=== PATIENT | female | born 1975 | race American Indian/Alaskan Native ===

== ENCOUNTER 2017-01-23 11:56 | Outpatient (CLI) | payer OTHER ==
--- NOTE | 2017-01-23 13:11 | XRAY Report ---
THREE-VIEW LEFT SHOULDER: 01/23/2017 CLINICAL INDICATION: Pain for six weeks. FINDINGS: Internal and external rotational views and a scapular Y view of the left shoulder demonstr ate no evidence of fracture or dislocation. The joint spaces are preserved. No radiopaque foreign b annamaria is seen in the soft tissues. IMPRESSION: NORMAL LEFT SHOULDER. JOB #: [id number] EXT JOB #:[id number]
== END 2017-01-23 11:57 | disposition home or self-care (01) ==
LOC: DI.N 11:56
PROVIDERS: ATTEND Physician Assistant
DX: M25.512 Pain in left shoulder (principal)

== ENCOUNTER 2019-08-16 12:35 | Emergency (ER) | payer BC, OTHER ==
[2019-08-16] MEDS ORDERED: HYDROcod/ACETAM 5/325 MG TABLET PO STA (13:59)
--- NOTE | 2019-08-16 13:59 | Ultrasound Report ---
Reason: RLE pain Procedure Date: 08/16/2019 Accession Number: [id number] / [id number] Procedure: US - Duplex Ext Veins Right CPT Code: Final Report FULL RESULT: EXAM: RIGHT LOWER EXTREMITY VENOUS ULTRASOUND EXAM DATE: 08/16/2019 01:45 PM. CLINICAL HISTORY: RLE pain. COMPARISON: None. TECHNIQUE: Real-time sonographic vascular imaging was performed by the organ tuner electronic through the lower extremity utilizing both color-flow and Doppler spectral analysis. Multiple workforce services representative static images were saved for review. FINDINGS: Common Femoral Vein (CFV): Normal. CFV-GSV Junction: Normal. Profunda Femoral Vein (PFV): Normal. Femoral Vein (FV) Prox: Normal. Femoral Vein (FV) Mid: Normal. Femoral Vein (FV) Dist: Normal. Popliteal Vein: Normal. Posterior Tibial Veins: Normal. Peroneal Veins: Normal. Contralateral Side CFV: Normal. Other: None. IMPRESSION: No evidence for deep venous thrombosis. [facility]
--- NOTE | 2019-08-16 14:00 | ED Physician Documentation ---
PD HPI LOWER EXT INJURY - Stated complaint Stated Complaint: RT LEG PX - Chief complaint Chief Complaint: Ext Problem - History obtained from History obtained from: Patient (43-year-old woman who is had about a weeks worth of right knee pain, it is worse when she walks. Gave out on her yesterday and she fell, did not help at all, she hurt her ankle little bit. The pain is in the middle and on the outside of the knee and radiates up to the right hip. She is never had this before.) Review of Systems Constitutional: denies: Fever, Chills Cardiac: reports: Reviewed and negative Respiratory: reports: Reviewed and negative PD PAST MEDICAL HISTORY - Present Medications Home Medications: Ambulatory Orders Medication Instructions Recorded Confirmed Hydrocodone/Acetaminophen 1 - 2 each PO Q6H PRN #10 tablet 08/16/19 [Hydrocodon-Acetaminophen 5-325] Ibuprofen [Motrin] 800 mg PO Q8H PRN #30 tablet 08/16/19 - Allergies Allergies/Adverse Reactions: Allergies Allergy/AdvReac Type Severity Reaction Status Date / Time No Known Drug Allergies Allergy Verified 08/16/19 12:53 PD ED PE NORMAL - Vitals Vital signs reviewed: Yes - General General: Alert and oriented X 3, No acute distress - Extremities Extremities: Other (The knee is mildly tender laterally, maybe a minimal effusion. Range of motion is normal. She has negative grind testing. Ligamentous testing is normal. A lot of tenderness over the IT band laterally and with IT band stretching. The ankle is nontender.) - Neuro Neuro: Alert and oriented X 3, Normal speech Results - Vitals Vitals: Vital Signs - 24 hr 08/16/19 12:53 Temperature 36.3 C L Heart Rate 87 Respiratory 16 Rate Blood Pressure 188/98 H O2 Saturation 100 Oxygen O2 Source Room air - Rads (name of study) R knee XR and RLE DVT sono Radiology: EMP read contemporaneously (both normal) Departure - Departure Disposition: 01 Home, Self Care Clinical Impression: Right leg pain, Iliotibial band syndrome of right side Right knee pain Qualifiers: Chronicity: acute Qualified Code(s): M25.561 - Pain in right knee Condition: Good Record reviewed to determine appropriate education?: Yes Instructions: Iliotibial Band Stretch, IT Band Syndrome About Prescriptions: Hydrocodone/Acetaminophen [Hydrocodon-Acetaminophen 5-325] 1 - 2 each PO Q6H PRN #10 tablet PRN Reason: pain Ibuprofen [Motrin] 800 mg PO Q8H PRN #30 tablet PRN Reason: PAIN &/OR FEVER Comments: The x-ray of your knee and ultrasound of your leg are normal, your presentation is most consistent with what is called iliotibial band syndrome. Do the exercises and I bet after a few days you will be almost completely better. Return for new or worsening symptoms. Follow-up with the orthopedic office if symptoms are persistent.
--- NOTE | 2019-08-16 14:32 | XRAY Report ---
Reason: knee pain Procedure Date: 08/16/2019 Accession Number: [id number] / [id number] Procedure: XR - Knee 4 View RT CPT Code: Final Report FULL RESULT: EXAM: RIGHT KNEE RADIOGRAPHY EXAM DATE: 08/16/2019 02:24 PM. CLINICAL HISTORY: Knee pain. COMPARISON: None. TECHNIQUE: 4 views. FINDINGS: Bones: Normal. No fractures or bone lesions. Joints: Mild tricompartmental osteophytes. No joint effusions or subluxations. Soft Tissues: Normal. No soft tissue swelling. IMPRESSION: No evidence for acute fracture or dislocation of the right knee. [facility]
[2019-08-16 14:52] VITALS: BP 172/104
== END 2019-08-16 14:52 | disposition home or self-care (01) ==
LOC: ED 12:35
DX: M76.31 Iliotibial band syndrome, right leg (principal); M25.561 Pain in right knee
CPT/HCPCS: 73564; 93971; 99283; A9270

== ENCOUNTER 2020-01-05 12:32 | Outpatient (CLI) | payer BC | END 2020-01-05 12:33 | disposition home or self-care (01) | LOC: COV 12:32 | PROVIDERS: ATTEND Family Medicine | DX: Z20.828 Contact with and (suspected) exposure to other viral communicable diseases (principal) ==

== ENCOUNTER 2021-05-11 16:24 | Outpatient (CLI) | payer BC ==
--- NOTE | 2021-05-11 18:13 | Ultrasound Report ---
PROCEDURE: Head or Neck Soft Tissue INDICATIONS: RIGHT CHEEK MASS TECHNIQUE: Real time scanning was performed of the neck region of interest, with image documentation . COMPARISON: None. FINDINGS: A round, heterogeneous mass is identified in the area of clinical concern, measuring 2.4 x 1.9 x 1.9 cm, which exhibits internal vascularity. IMPRESSION: 1. Mass in the region of clinical concern, concerning for an abnormal lymph node or mass. Fine-needle aspiration may be helpful for further characterization. Reviewed by: Frank Zhong MD on 05/11/2021 6:12 PM PST Approved by: Frank Zhong MD on 05/11/2021 6:12 PM PST Station ID: [id number]
== END 2021-05-11 16:25 | disposition home or self-care (01) ==
LOC: DI 16:24
PROVIDERS: ATTEND Physician Assistant
DX: R22.0 Localized swelling, mass and lump, head (principal)